=== PATIENT | female | born 1990 | race Two or more races ===

== ENCOUNTER 2020-05-18 12:53 | Emergency (ER) | payer BC ==
[~2020-05-18] VITALS: Ht 165.1 cm; Wt 56.2 kg
--- NOTE | 2020-05-18 13:05 | NUR ---
patient came in to the er c/o difficulty swallowing and throat tightness while in the car. On room air, breathing evenly and unlabored. connected to the monitor and pulse ox. kept comfortable, will continue to monitor accordingly.
[2020-05-18] MEDS ORDERED: ALPRAZOLAM 0.25 MG TABLET ONE (13:14)
[2020-05-18 13:19] VITALS: BP 140/81
--- NOTE | 2020-05-18 13:19 | NUR ---
Patient discharged to home in stable condition. Written and verbal after care instructions given. Patient verbalizes understanding of instruction.
[2020-05-18] MEDS ORDERED: ALPRAZOLAM 0.25 MG TABLET PO ONE (13:30)
== END 2020-05-18 13:19 | disposition home or self-care (01) ==
LOC: ER 12:58
DX: F41.0 Panic disorder [episodic paroxysmal anxiety] (principal)